=== PATIENT | male | born 1975 | race Two or more races ===

== ENCOUNTER 2018-08-04 11:35 | Outpatient (CLI) | payer OTHER | END 2018-08-04 12:48 | disposition home or self-care (01) | LOC: RAD 11:35 | DX: M25.521 Pain in right elbow (principal) ==

== ENCOUNTER 2018-11-01 14:23 | Outpatient (CLI) | payer OTHER | END 2018-11-01 14:29 | disposition home or self-care (01) | LOC: RAD 14:23 | DX: I10 Essential (primary) hypertension (principal); E78.4 Other hyperlipidemia ==

== ENCOUNTER → 2019-06-12 | Outpatient (CLI) | payer OTHER | END | disposition home or self-care (01) | LOC: RAD 13:19 | DX: M17.11 Unilateral primary osteoarthritis, right knee (principal) ==